=== PATIENT | female | born 1995 | race Hispanic/Latino ===

== ENCOUNTER 2018-02-11 16:58 | Day surgery (SDC) | payer BC, OTHER ==
[2018-02-11 17:33] VITALS: BMI 31.1
[2018-02-11 18:34] LABS: Bilirubin Negative (Negative); Blood, Urine Negative (Negative); Clarity CLEAR (Clear); Glucose, Urine (Dipstick) 100 mg/dL (Negative); Leukocyte Negative (Negative); Nitrite Negative (Negative); Protein, Urine (Dipstick) 30 mg/dL (Neg-Trace); Specific Gravity, Urine 1.027 (1.002-1.036); pH, Urine 8.5 (5.0-9.0)
[2018-02-11 18:43] LABS: Bacteria/HPF Rare-Few HPF (None Seen); Hyaline Casts/LPF 0-3 HYALINE CAST LPF (0-3 Hyaline); Pathc Cast-AUWi Flag 0.87 (0-2.49); RBC/HPF 0-3 HPF (0-3); WBC/HPF 0-3 HPF (0-3)
[2018-02-11 18:54] LABS: FFN Internal QC Analyzer PASS (PASS); FFN Internal QC Cassette PASS (PASS); Fetal Fibronectin Negative (Negative)
--- NOTE | 2018-02-11 22:27 | PRG ---
DATE OF SERVICE: 02/11/2018 OB/ER ENCOUNTER PRIMARY HARNESS INSTALLER: Dr. Sotero Wallace CHIEF COMPLAINT: Pelvic pressure, urinary dysuria and hesitancy. HISTORY OF PRESENT ILLNESS: The patient is a 22-year-old G5, P3 female with an intrauterine at 30 weeks and 5 days who is presenting with a 2-3 day history of pelvic pressure and pain with activity and movement. She also reports that she at times has a sensation that she needs to pee, but was unable to. She was last seen about a week ago and reports that she has not had a urinary tract infection with this . She does have a history of delivery by for what sounds like advanced cervical dilation and abnormal cord presentation. The patient is currently taking progesterone supplementation by weekly injection. PAST MEDICAL HISTORY: Negative. PAST SURGICAL HISTORY: She has had 1 previous and she has also had a fasciotomy on her lower extremity due to complication from sports injury. ALLERGIES: No known drug allergies. MEDICATIONS: vitamins and weekly progesterone injections. SOCIAL HISTORY: Denies drug, alcohol or tobacco use. OB LABORATORY DATA: Unavailable at time of dictation. REVIEW OF SYSTEMS: Patient denies headache, fever, fall, chest pain, shortness of breath, nausea, vomiting, diarrhea, constipation. She denies any new rashes , hip problems, knee problems, muscle weakness, vaginal bleeding, leakage of fluid, urinary frequency. PHYSICAL EXAMINATION: VITAL SIGNS: Blood pressure is 112/67, heart rate of 109, respiratory rate of 16, temperature 98.0. GENERAL: She appears to be in no acute distress. She is alert and oriented, cooperative and pleasant to interact with. HEAD: Normocephalic, atraumatic. LUNGS: Clear to auscultation bilaterally. HEART: Regular rate and rhythm. ABDOMEN: Soft, nontender. EXTREMITIES: Nontender, nonedematous. PELVIC: Vulva is without masses, lesions or erythema. Vagina is moist. Cervix is visibly closed. fibronectin was collected as well as a CDA TEACHER-3. Cervix was closed on bimanual exam. Patient has tenderness to palpation of the uterus, mild with reproduction of her chief complaint with deviation of the uterus to left and right putting strain on the round ligament. heart tracing performed for pelvic pressure in . Fetus's duration of evaluation is approximately 2 hours, baseline is noted to be in the 140s with moderate long-term variability, positive accelerations, no decelerations. Tocometer does not show any contraction pattern. Urinalysis results show high specific gravity with 1+ protein, no nitrites, no leukocyte esterase, no bacteria, no white blood cells. Fibronectin is negative. CDA TEACHER -3 is pending. ASSESSMENT AND PLAN: The patient is a 22-year-old G5, P3 female with an intrauterine at 30 weeks and 5 days and a history of delivery on progesterone supplementation. She has no evidence of urinary tract infection by urinalysis. CDA TEACHER-3 is pending. There is no evidence of labor and chances of labor are in the next 2 weeks or low with a negative Fibronectin. Patient is being discharged to home. Fetus has a category 1 tracing and reactive NST. We will be notifying the patient with CDA TEACHER-3 results when they become available. Addendum VP3 is neg/neg/neg MTDD
== END 2018-02-11 19:30 | disposition home or self-care (01) ==
LOC: L&D/OP 16:58
PROVIDERS: ATTEND Obstetrics & Gynecology
DX: O99.89 Other specified diseases and conditions complicating pregnancy, childbirth and the puerperium (principal); R10.2 Pelvic and perineal pain; R30.0 Dysuria; R39.11 Hesitancy of micturition; Z3A.30 30 weeks gestation of pregnancy
CPT/HCPCS: 81001; 82731; 87480; 87510; 87660; 99285

== ENCOUNTER 2018-04-01 23:10 | Inpatient (IN) | payer OTHER ==
[2018-04-02 00:01] VITALS: BMI 31.6
[2018-04-02] MEDS ORDERED: Lidocaine 1% (PF) 30 ML VIAL SC PRN (00:17)
[2018-04-02] MEDS ORDERED: HYDROcodone/Acetaminophen 5/325 mg Tablet PO PRN ×2 (00:17)
[2018-04-02] MEDS ORDERED: NS / Oxytocin 40 units/1000ml 1,000 ML IV PRN (00:17)
[2018-04-02] MEDS ORDERED: Ondansetron HCl/PF 4 MG/2 ML Vial IVP PRN ×2 (00:17→16:40)
[2018-04-02] MEDS ORDERED: Ibuprofen 800 MG TAB PO PRN (00:17)
[2018-04-02] MEDS ORDERED: NS w/ Oxytocin 10 units 500 ML IV SCH (00:30)
[2018-04-02] MEDS ORDERED: Lactated Ringer's 1,000 ML IV SCH (00:30)
[2018-04-02] MEDS: Lactated Ringer's 1,000 ML IV SCH ×3 (01:00→12:59)
[2018-04-02 01:43] LABS: Hemoglobin 10.8 g/dL (12.0-16.0); Mean Corpuscular Hemoglobin 24.4 pg (27.0-31.0); Mean Corpuscular Volume 76.2 fL (78.0-98.0); Mean Platelet Volume 9.9 fL (7.4-10.4); Platelet Count 218 thou/uL (130-400); RBC Distribution Width 16.7 % (11.5-14.5); Red Blood Cell (RBC) Count 4.42 mill/uL (4.20-5.40); White Blood Cell (WBC) Count 5.3 thou/uL (4.8-10.8)
[2018-04-02 02:25] LABS: HBSAg Index 0.19 S/CO (0-0.99); Hep B Surf Ag Non-Reactive S/CO (NonReactive)
[2018-04-02 05:26] LABS: Syphilis Antibody Nonreactive (Nonreactive); Syphilis Antibody Index 0.04 S/CO (<1.00 Non-Reactive)
[2018-04-02] MEDS ORDERED: DISCONTINUE ALL PREVIOUS NARCOTICS FS SCH (11:45)
[2018-04-02] MEDS ORDERED: Bupivacaine 0.5% 20 ML, fentaNYL Citrate/PF 400 MCG in Sodium Chloride 0.9% 72 ML EPIDURAL SCH (11:45)
[2018-04-02] MEDS ORDERED: Bupivacaine 0.25% HCL 30 ML VIAL ONE (15:49)
[2018-04-02] MEDS ORDERED: Promethazine HCl 25 MG/ML VIAL IM PRN (16:40)
[2018-04-02] MEDS ORDERED: diphenhydrAMINE 50 MG/ML VIAL IVP PRN (16:40)
[2018-04-02] MEDS ORDERED: Acetaminophen 325 MG TAB PO PRN (16:40)
[2018-04-02] MEDS ORDERED: Lactated Ringer's 500 ML IV PRN (16:40)
[2018-04-02] MEDS ORDERED: ePHEDrine/0.9% NaCl/PF SYRINGE 50 mg/10 ml SLOW IVP PRN (16:40)
[2018-04-02] MEDS ORDERED: Naloxone HCl 0.4 mg/ml Vial IVP PRN ×2 (16:40)
[2018-04-02] MEDS ORDERED: Eucerin (Mineral Oil/Petrolatum,White) 30 gm Jar TOP PRN (16:40)
[2018-04-02] MEDS ORDERED: fentaNYL Citrate/PF 400 MCG, Bupivacaine 0.5% 20 ML in Sodium Chloride 0.9% 72 ML EPIDURAL SCH (16:45)
[2018-04-02] MEDS ORDERED: Communication Order-Pharmacy FS SCH (16:45)
[2018-04-02] MEDS ORDERED: Misoprostol 200 MCG TAB ONE (20:13)
[2018-04-02] MEDS ORDERED: Misoprostol 200 MCG TAB PR PRN (20:26)
--- NOTE | 2018-04-02 20:29 | PDOC.LDHP ---
Labor and Delivery H&P HPI: 22 year old 37w and 6 days, presents with premature FULL TERM rupture of membranes. Patient has decided she would like a TOLAC and hopefully today. Current gestational age (weeks): 37 Grav: 5 Para: 3 Current complications: none Abnormal US findings: No Current medications: pre- vitamins Previous surgical history: low tranverse CS Allergies/Adverse Reactions: Allergies Allergy/AdvReac Type Severity Reaction Status Date / Time No Known Allergies Allergy Verified 04/02/18 00:02 Social history: none - Physical Exam Vital signs reviewed and normal: yes General: NAD Heart: RRR Lungs: CTAB Abdomen: gravid Extremeties: no edema FHT: category 1 - Vaginal Exam cm dilated: 3 - Assessment L&D Assessment: term rupture in membranes - Plan Plan: admit to L&D, labor augmentation if indicated
[2018-04-03] MEDS ORDERED: diphenhydrAMINE 25 MG CAP PO PRN (02:09)
[2018-04-03] MEDS ORDERED: Ondansetron HCl/PF 4 MG/2 ML Vial IVP PRN (02:09)
[2018-04-03] MEDS ORDERED: Promethazine HCl 25 MG/ML VIAL IM PRN (02:09)
[2018-04-03] MEDS ORDERED: Bisacodyl 10 MG SUPP PR PRN (02:09)
[2018-04-03] MEDS ORDERED: Zolpidem Tartrate 5 MG TAB PO PRN (02:09)
[2018-04-03] MEDS ORDERED: Lanolin Ointment 7 GM TUBE TOP PRN (02:09)
[2018-04-03] MEDS ORDERED: HYDROcodone/Acetaminophen 5/325 mg Tablet PO PRN (02:09)
[2018-04-03] MEDS ORDERED: Acetaminophen/Codeine 30-300mg Tablet PO PRN (02:09)
[2018-04-03] MEDS ORDERED: NS / Oxytocin 40 units/1000ml 1,000 ML IV SCH (02:09)
[2018-04-03] MEDS ORDERED: Methylergonovine 0.2 MG/ML VIAL IM PRN (02:09)
[2018-04-03] MEDS ORDERED: Milk Of Magnesia 30 ML UDCUP PO PRN (02:09)
[2018-04-03] MEDS ORDERED: Docusate Calcium (SURFAK) 240 MG CAP PO SCH (02:30)
[2018-04-03] MEDS: Ibuprofen 800 MG TAB PO SCH ×3 (06:53→18:12)
[2018-04-03] MEDS ORDERED: Varicella virus, LIVE 0.5 ML VIAL SC ONE (09:00)
[2018-04-03] MEDS ORDERED: Adacel (T-DAP) 0.5 ML VIAL IM ONE (09:00)
[2018-04-03] MEDS ORDERED: Measles/Mumps/Rubella 10 MCG/0.5 ML VIAL SC ONE (09:00)
[2018-04-03] MEDS: Ferrous Sulfate 325 MG TAB PO SCH ×2 (09:27→18:16)
[2018-04-03] MEDS: Docusate Calcium (SURFAK) 240 MG CAP PO SCH (09:29)
--- NOTE | 2018-04-03 12:28 | PDOC.PP ---
Post Progress Note Post Day #: 1 Subjective: no complaints PO intake tolerated: yes Flatus: yes Ambulation: yes Vital Signs (12 hours) Temp Pulse Resp BP Pulse Ox 04/03/18 12:00 97.9 F 93 20 107/62 04/03/18 08:00 98.8 F 72 24 H 106/84 98 04/03/18 06:00 98.8 F 77 18 108/71 04/03/18 04:00 99.1 F 88 18 112/75 Weight Weight 173 lb - Physical Examination General: NAD Cardiovascular: no m/r/g Respiratory: clear to auscultation bilaterally Abdominal: + bowel sounds Extremities: negative homans (B) Neurological: no gross focal deficits Psychiatric: A&Ox3 Result Diagrams: 04/02/18 01:00 Additional Labs: Post Labs Blood Type B POSITIVE 04/02/18 01:00 Hep Bs Antigen Non-Reactive S/CO (NonReactive) 04/02/18 01:00 - Assessment/Plan Patient stable, ready for dc LATE TONIGHT OR TOMORROW MORNING WHEN BABY IS DISCHARGED.
--- NOTE | 2018-04-03 12:58 | OP ---
DATE OF DELIVERY: 04/02/2018 PREOPERATIVE DIAGNOSES: Intrauterine at 37 weeks and 6 days with premature rupture of memb ranes and eventual spontaneous labor with Pitocin augmentation. POSTOPERATIVE DIAGNOSES: Intrauterine at 37 weeks and 6 days with premature rupture of mem branes and eventual spontaneous labor with Pitocin augmentation. PROCEDURE: Successful vaginal after section. FINDINGS: Viable male weighing 3333 grams or 7 pounds 6 ounces, Apgars 8 and 9. Quantitative blood loss 207 mL COMPLICATIONS: None. DETAILS OF THE PROCEDURE: The patient presented to [facility] where she was a dmitted to the Labor and Delivery service. The patient underwent a normal and uneventful labor with normal cervical dilatation until she was found to be completely dilated. She was then allowed to pus h and was able to bring the baby down and delivered the baby in a vertex presentation without difficu lties. Once the head delivered in occiput anterior position, the shoulders followed spontaneously al yuko with the rest of the baby's body. Once out the baby's mouth and nose were bulb suctioned. The c ord was clamped and cut and baby was handed to waiting attendants. Cord blood was collected. Gentle Fundal massage was performed and the placenta delivered intact without problems. Hemostasis was ass ured. Quantitative blood loss was calculated. Inspection of the cervix, vaginal vault, and perineum did not reveal any lacerations needing suturing. Once again, hemostasis was within normal limits an d the patient was allowed to recover in the labor and delivery room. Baby went to nursery.
[2018-04-04] MEDS: Docusate Calcium (SURFAK) 240 MG CAP PO SCH ×2 (03:59→09:30)
[2018-04-04] MEDS: Ibuprofen 800 MG TAB PO SCH ×2 (03:59)
[2018-04-04 08:10] VITALS: BP 112/79; TEMP 97.7
[2018-04-04] MEDS: Ferrous Sulfate 325 MG TAB PO SCH (08:57)
[2018-04-04] MEDS: Lactated Ringer's 1,000 ML IV SCH (08:57)
== END 2018-04-04 13:45 | disposition home or self-care (01) | DRG 775 ==
LOC: L&D/OP 23:10 → L&D 04-02 06:21 → 3SW 04-03 02:06
PROVIDERS: ADMIT Obstetrics & Gynecology; ATTEND Obstetrics & Gynecology
PROC: 10E0XZZ Delivery of Products of Conception, External Approach (ICD-10-PCS; principal; 2018-04-02)
DX: O42.02 Full-term premature rupture of membranes, onset of labor within 24 hours of rupture (principal); Z3A.37 37 weeks gestation of pregnancy; Z37.0 Single live birth; O34.211 Maternal care for low transverse scar from previous cesarean delivery
CPT/HCPCS: 51702; 85027; 86780; 86850; 86900; 86901; 87340; 99285; J1200; J3010; J3490; J7050; S0020

== ENCOUNTER 2018-05-30 00:35 | Emergency (ER) | payer OTHER ==
[2018-05-30 01:25] LABS: Bilirubin Negative (Negative); Blood, Urine Negative (Negative); Clarity CLEAR (Clear); Glucose, Urine (Dipstick) Negative (Negative); Leukocyte Negative (Negative); Nitrite Negative (Negative); Pregnancy Test - Urine (BHCG) Negative (Negative); Pregu Control Background? CLEAR/WHITE (CLR/WHITE); Pregu Control Bar Appear? YES (CONTROL BAR); Protein, Urine (Dipstick) Trace mg/dL (Neg-Trace); Specific Gravity 1.034 (1.002-1.036); Specific Gravity, Urine 1.034 (1.002-1.036); Urobilinogen 0.2 mg/dL (0.2-1.0)
[2018-05-30] MEDS ORDERED: Ketorolac Tromethamine 30 MG/ML VIAL ONE (01:30)
[2018-05-30] MEDS ORDERED: Diazepam 5 MG TAB ONE (01:30)
[2018-05-30] MEDS ORDERED: Bupivacaine 0.25% 10 ML VIAL ONE ×2 (02:22→02:34)
[2018-05-30] MEDS ORDERED: Bupivacaine 0.5% 10 ML VIAL ONE (02:22)
== END 2018-05-30 03:43 | disposition home or self-care (01) ==
LOC: ERS 00:35
DX: M54.5 Low back pain (principal)
CPT/HCPCS: 20553; 81003; 81025; 87086; 96372; J1885; J3490; S0020

== ENCOUNTER 2018-11-25 18:02 | Emergency (ER) | payer OTHER, SELFPAY ==
[2018-11-25] MEDS ORDERED: Acetaminophen 500 MG TAB ONE (19:01)
== END 2018-11-25 19:18 | disposition home or self-care (01) ==
LOC: ERS 18:02
DX: J02.0 Streptococcal pharyngitis (principal)
CPT/HCPCS: 87430; 99283